=== PATIENT | female | born 1995 | race Caucasian/White ===

== ENCOUNTER 2017-04-16 14:01 | Emergency (ER) | payer SELFPAY ==
[~2017-04-16] VITALS: Ht 162.6 cm; Wt 57.7 kg
[2017-04-16 14:03] VITALS: BP 140/84; TEMP 98.7
[2017-04-16] MEDS ORDERED: LO LOESTRIN FE1 TAB PO (14:06)
[2017-04-16 15:35] VITALS: PULSE 97
== END 2017-04-16 15:38 | disposition home or self-care (01) ==
LOC: COL.ER 14:01
DX: S61.213A Laceration without foreign body of left middle finger without damage to nail, initial encounter (principal); W26.0XXA Contact with knife, initial encounter